=== PATIENT | female | born 1990 | race Caucasian/White ===

== ENCOUNTER 2016-03-12 19:06 | Inpatient (IN) | payer OTHER ==
[~2016-03-12] VITALS: Ht 154.9 cm; Wt 78.0 kg
[~2016-03-12 19:06] MED LIST: METFORMIN HCL1000 MG PO; PRENATAL TABLE1 EAC3 PO
[2016-03-12 19:36] VITALS: BP 127/74
[2016-03-12] MEDS ORDERED: ZANTAC150 MG PO (19:41)
[2016-03-12 21:46] VITALS: BP 116/68
[2016-03-12 22:25] VITALS: BP 132/81
[2016-03-12 22:42] LABS: HEMATOCRIT 40.7 % (36.0-46.0); MCH 31.3 PG (29.0-34.0); MCHC 34.9 G/DL (30.0-36.0); MCV 89.6 FL (83-99); MEAN PLAT.VOLUME 9.8 uM^3 (9.5-12.4); PLATELET COUNT 279 K/uL (156-360); RBC DIS.WIDTH-CV 12.8 % (11.8-14.6); RBC DIS.WIDTH-SD 41.1 % (39-53); RED BLOOD COUNT 4.54 M/uL (3.80-5.20); WHITE BLOOD COUNT 20.9 K/uL (4.1-10.2)
[2016-03-12 22:43] LABS: EOSINOPHIL (%) 0.3 % (0-5); EOSINOPHIL COUNT 0.1 K/uL (0-0.3); IMMATURE GRANULOCYTE (%) 0.3 % (0.0-0.7); IMMATURE GRANULOCYTE COUNT 0.7 K/uL; LYMPHOCYTE COUNT 1.8 K/uL (1.0-2.8); MONOCYTE COUNT 1.3 K/uL (0-0.8); NEUTROPHIL (%) 84.8 % (45-76); NEUTROPHIL COUNT 17.7 K/uL (1.8-6.4)
[2016-03-12 23:20] VITALS: BP 116/63
[2016-03-13] VITALS (27 sets, daily range): BP systolic 98–152; BP diastolic 57–89
[2016-03-13] MEDS ORDERED: IBUPROFEN800 MG PO (13:52)
[2016-03-14 07:01] VITALS: BP 108/62
[2016-03-14 15:54] VITALS: BP 113/59
[2016-03-14 22:40] VITALS: BP 115/72
[2016-03-15 07:13] VITALS: BP 108/56
== END 2016-03-15 16:30 | disposition home or self-care (01) | DRG 775 ==
LOC: LDRP-OP 19:06 → 2WEST 19:07 → LDRP-OP 04-14 20:03
PROVIDERS: Obstetrics & Gynecology
DX: O70.1 Second degree perineal laceration during delivery (principal); O77.0 Labor and delivery complicated by meconium in amniotic fluid; O99.62 Diseases of the digestive system complicating childbirth; K21.9 Gastro-esophageal reflux disease without esophagitis; O99.284 Endocrine, nutritional and metabolic diseases complicating childbirth; E28.2 Polycystic ovarian syndrome; Z3A.39 39 weeks gestation of pregnancy; Z37.0 Single live birth
CPT/HCPCS: 85025; C1755; G0378; J1050; J2405; J3010; J7120